=== PATIENT | male | born 1980 | race African-American/Black ===

== ENCOUNTER 2017-07-19 14:53 | Emergency (ER) | payer SELFPAY ==
[2017-07-19] MEDS ORDERED: Ketorolac Tromethamine 60 MG/2 ML VIAL ONE (16:10)
--- NOTE | 2017-07-19 17:25 | RAD ---
LEFT SHOULDER THREE VIEWS: 07/19/17 HISTORY: Shoulder surgery in 2013. Shoulder pain. AC joint is unremarkable. There appears to be some minimal arthritic changes of the glenohumeral join t. There is no signs of fracture. IMPRESSION: Minimal arthritic changes of the glenohumeral joint space. Minimal spurring along the acetabulum. POS: [facility]
--- NOTE | 2017-07-19 17:26 | RAD ---
CERVICAL SPINE THREE VIEWS: 07/19/17 HISTORY: Neck pain and left neck and shoulder pain. Vertebral bodies maintain normal height. Disc spaces are all fairly well preserved. I do not see any significant osteophytic change. I do not appear any definite interval change since 12/09/12 study. IMPRESSION: Unremarkable cervical spine. POS: [facility]
== END 2017-07-19 17:13 | disposition home or self-care (01) ==
LOC: ERS 14:53
DX: M54.2 Cervicalgia (principal); M25.512 Pain in left shoulder; F41.9 Anxiety disorder, unspecified; F17.210 Nicotine dependence, cigarettes, uncomplicated; Z79.899 Other long term (current) drug therapy
CPT/HCPCS: 72040; 96372; J1885

== ENCOUNTER 2017-12-26 09:24 | Emergency (ER) | payer SELFPAY ==
[2017-12-26] MEDS ORDERED: Dexamethasone 4 mg/ml Vial ONE (11:15)
== END 2017-12-26 11:38 | disposition home or self-care (01) ==
LOC: ERS 09:24
DX: R09.81 Nasal congestion (principal); F32.9 Major depressive disorder, single episode, unspecified; F17.210 Nicotine dependence, cigarettes, uncomplicated; Z71.6 Tobacco abuse counseling
CPT/HCPCS: 99406; J1100

== ENCOUNTER 2018-03-04 08:59 | Emergency (ER) | payer SELFPAY ==
[2018-03-04] MEDS ORDERED: Ketorolac Tromethamine 60 MG/2 ML VIAL ONE (09:38)
[2018-03-04] MEDS ORDERED: Cyclobenzaprine 10 MG TAB ONE (09:38)
== END 2018-03-04 10:05 | disposition home or self-care (01) ==
LOC: ERS 08:59
DX: M62.838 Other muscle spasm (principal); F41.9 Anxiety disorder, unspecified; F32.9 Major depressive disorder, single episode, unspecified; Z79.899 Other long term (current) drug therapy
CPT/HCPCS: 96372; J1885

== ENCOUNTER 2018-05-25 20:47 | Emergency (ER) | payer SELFPAY | END 2018-05-25 21:16 | disposition home or self-care (01) | LOC: ERS 20:47 | DX: K03.81 Cracked tooth (principal); F32.9 Major depressive disorder, single episode, unspecified; F17.210 Nicotine dependence, cigarettes, uncomplicated | CPT/HCPCS: 99282 ==

== ENCOUNTER 2018-06-11 14:17 | Emergency (ER) | payer SELFPAY | END 2018-06-11 14:46 | disposition home or self-care (01) | LOC: SCSER 14:17 | DX: K02.9 Dental caries, unspecified (principal); F17.210 Nicotine dependence, cigarettes, uncomplicated; Z71.6 Tobacco abuse counseling; F41.9 Anxiety disorder, unspecified; F32.9 Major depressive disorder, single episode, unspecified | CPT/HCPCS: 99406 ==

== ENCOUNTER 2018-07-27 21:35 | Emergency (ER) | payer SELFPAY ==
[2018-07-27] MEDS ORDERED: Ketorolac Tromethamine 30 MG/ML VIAL ONE (22:27)
[2018-07-27] MEDS ORDERED: Cyclobenzaprine 10 MG TAB ONE (22:27)
== END 2018-07-27 23:00 | disposition home or self-care (01) ==
LOC: SCSER 21:35
DX: M62.838 Other muscle spasm (principal); F17.210 Nicotine dependence, cigarettes, uncomplicated
CPT/HCPCS: 96372; J1885

== ENCOUNTER 2019-01-28 16:06 | Emergency (ER) | payer SELFPAY ==
--- NOTE | 2019-01-28 16:55 | RAD ---
EXAM: XR Hand Lt 3 View STANDARD PROVIDED CLINICAL HISTORY: Pain FINDINGS: There is no evidence for fracture or other acute osseous abnormality. Alignment appears anatomic. Johanny nt spaces appear preserved. IMPRESSION: No evidence for an acute osseous abnormality. If there is persistent clinical concern, conservative m anagement and follow-up imaging advised.
== END 2019-01-28 17:24 | disposition home or self-care (01) ==
LOC: ERS 16:06
DX: M79.642 Pain in left hand (principal); F41.9 Anxiety disorder, unspecified; F32.9 Major depressive disorder, single episode, unspecified; F17.210 Nicotine dependence, cigarettes, uncomplicated; Z79.899 Other long term (current) drug therapy

== ENCOUNTER 2019-05-29 18:55 | Emergency (ER) | payer SELFPAY ==
[2019-05-29] MEDS ORDERED: Ketorolac Tromethamine 30 MG/ML VIAL ONE (19:51)
== END 2019-05-29 20:12 | disposition home or self-care (01) ==
LOC: ERS 18:55
DX: M54.5 Low back pain (principal); F32.9 Major depressive disorder, single episode, unspecified; F41.9 Anxiety disorder, unspecified; G89.29 Other chronic pain; F17.210 Nicotine dependence, cigarettes, uncomplicated; Z79.891 Long term (current) use of opiate analgesic; Z79.899 Other long term (current) drug therapy
CPT/HCPCS: 96372; 99283; J1885

== ENCOUNTER 2019-06-26 15:05 | Emergency (ER) | payer SELFPAY ==
--- NOTE | 2019-06-26 15:43 | CT ---
CT HEAD WITHOUT IV CONTRAST COMPARISON: 10/27/2015 HISTORY: Lightheadedness and headache. TECHNIQUE: Axial CT imaging at 5 mm intervals from vertex through skull base without contrast FINDINGS: There is no evidence of an acute infarction, hemorrhage, mass effect, or midline shift. The ventricul ar system is normal in size, shape, and position. Visualized paranasal sinuses are clear. Osseous structures appear intact.No interval change when compared to prior exam. IMPRESSION: 1. No acute intracranial abnormality demonstrated.
--- NOTE | 2019-06-26 15:51 | RAD ---
RADIOGRAPH CHEST 1 VIEW: DATE: 06/26/2019. HISTORY: A 39-year-old male with headache and dizziness. FINDINGS: There are no air space densities, pulmonary edema, pneumothorax, or cardiomegaly. The lateral costop hrenic angles are sharp. IMPRESSION: No acute cardiopulmonary findings. jn [] POS: [facility]
[2019-06-26] MEDS ORDERED: Metoclopramide HCl 10 MG/2 ML VIAL ONE ×2 (15:55→16:54)
[2019-06-26] MEDS ORDERED: diphenhydrAMINE 50 MG/ML VIAL ONE ×2 (15:55→16:54)
[2019-06-26 17:21] LABS: Hemoglobin 14.3 g/dL (14.0-18.0); Mean Corpuscular HGB CONC 34.3 g/dL (32.0-36.0); Mean Corpuscular Hemoglobin 28.6 pg (27.0-31.0); Mean Corpuscular Volume 83.5 fL (78.0-98.0); Mean Platelet Volume 9.6 fL (7.4-10.4); Platelet Count 177 thou/uL (130-400); RBC Distribution Width 13.4 % (11.5-14.5); White Blood Cell (WBC) Count 6.6 thou/uL (4.8-10.8)
[2019-06-26 17:22] LABS: ALT (SGPT) 15 U/L (8-55); AST (SGOT) 31 U/L (5-34); Albumin 4.2 g/dL (3.5-5.0); Alkaline Phosphatase 77 U/L (40-110); Anion Gap 14 mmol/L (10-20); BUN (Urea Nitrogen) 11 mg/dL (8.9-20.6); Bilirubin, Total 0.6 mg/dL (0.2-1.2); Calc. Creatinine Clearance 0 mL/min (70-130); Calcium 8.8 mg/dL (7.8-10.44); Carbon Dioxide 23 mmol/L (22-29); Chloride 105 mmol/L (98-107); Estimated GFR-MDRD 87; Globulin 3.1 g/dL (2.4-3.5); Glucose 84 mg/dL (70-105); Potassium 5.4 mmol/L (3.5-5.1); Protein, Total 7.3 g/dL (6.0-8.3); Sodium 137 mmol/L (136-145)
[2019-06-26 17:43] LABS: Band 2 % (5-11); Eosinophils 4 % (0-10); Lymphocytes 26 % (21-51); MDiff Complete? YES; Monocytes 10 % (0-10); Neutrophil 28 % (42-75); Platelet Morphology Comment Appears Adequate; Polychromasia SLIGHT = 2-3 cells (100X) (0-2/hpf); Reactive Lymphocytes 30 % (0-10); Schistocytes SLIGHT = 2-5 cells (100X) (0-1/hpf); Target Cells MODERATE= 6-15 cells (100X) (0-1/hpf)
== END 2019-06-26 18:26 | disposition home or self-care (01) ==
LOC: ERS 15:05
DX: R51 Headache (principal); R42 Dizziness and giddiness; F31.9 Bipolar disorder, unspecified; F41.9 Anxiety disorder, unspecified; F20.9 Schizophrenia, unspecified; F17.210 Nicotine dependence, cigarettes, uncomplicated; Z79.899 Other long term (current) drug therapy
CPT/HCPCS: 70450; 71045; 80053; 84484; 85025; 93005; 96365; 96375; J1200; J2765

== ENCOUNTER 2021-03-25 08:51 | Emergency (ER) | payer BC, SELFPAY | END 2021-03-25 09:36 | disposition home or self-care (01) | LOC: ERS 08:51 | DX: K02.9 Dental caries, unspecified (principal); F17.210 Nicotine dependence, cigarettes, uncomplicated; Z79.899 Other long term (current) drug therapy | CPT/HCPCS: 99282 ==

== ENCOUNTER 2021-05-10 15:53 | Emergency (ER) | payer BC ==
[2021-05-11 11:55] LABS: SARS-CoV-2 PCR by NAA DETECTED (NotDetected)
== END 2021-05-10 20:46 | disposition home or self-care (01) ==
LOC: ERS 15:53
DX: U07.1 COVID-19 (principal); F17.210 Nicotine dependence, cigarettes, uncomplicated
CPT/HCPCS: 99283; U0003; U0005

== ENCOUNTER 2022-07-05 16:23 | Emergency (ER) | payer BC ==
[2022-07-05] MEDS ORDERED: Oxymetazoline HCl 0.05% (30 ML BOT) ONE (17:06)
== END 2022-07-05 17:28 | disposition home or self-care (01) ==
LOC: ERS 16:23
DX: R04.0 Epistaxis (principal); F17.210 Nicotine dependence, cigarettes, uncomplicated
CPT/HCPCS: 99282

== ENCOUNTER 2022-12-25 15:07 | Emergency (ER) | payer OTHER | END 2022-12-25 17:10 | disposition home or self-care (01) | LOC: ERS 15:07 | DX: M25.562 Pain in left knee (principal); F17.210 Nicotine dependence, cigarettes, uncomplicated ==

== ENCOUNTER 2023-09-07 20:22 | Emergency (ER) | payer OTHER ==
[2023-09-07 20:46] LABS: Bilirubin Negative (Negative); Blood, Urine Negative (Negative); Glucose, Urine (Dipstick) Negative (Negative); Ketone, Urine Negative (Negative); Leukocyte Negative (Negative); Nitrite Negative (Negative); Protein, Urine (Dipstick) Negative (Neg-Trace); Specific Gravity, Urine 1.015 (1.005-1.030); Urobilinogen 0.2 mg/dL (Less than 2)
[2023-09-07 21:12] LABS: Clarity Clear (Clear)
[2023-09-07 21:19] LABS: Bacteria/HPF None Seen HPF (None Seen); CAUTI Indications for Culture Dysuria,urgency,freq; RBC/HPF 0-3 HPF (0-3); Squamous Epithelial None Seen HPF (0-3); WBC/HPF 0-3 HPF (0-3)
[2023-09-07] MEDS ORDERED: Acetaminophen 500 MG TAB ONE (21:23)
[2023-09-07] MEDS ORDERED: Ketorolac Tromethamine 30 MG (1 mL) VIAL ONE (21:23)
[2023-09-07] MEDS ORDERED: Metoclopramide 10 MG/10 ML UDCUP ONE (21:24)
[2023-09-07 21:38] LABS: Urine Culture Reflex No No
== END 2023-09-07 22:03 | disposition home or self-care (01) ==
LOC: ERS 20:22
DX: R51.9 Headache, unspecified (principal); R11.0 Nausea; F17.210 Nicotine dependence, cigarettes, uncomplicated; Z86.16 Personal history of COVID-19
CPT/HCPCS: 81001; 96372; 99284; J1885

== ENCOUNTER 2023-10-19 19:01 | Emergency (ER) | payer OTHER, SELFPAY ==
[2023-10-19] MEDS ORDERED: Boostrix 0.5 ML (Tdap) VIAL (>/=7 yrs of age) ONE (19:17)
== END 2023-10-19 20:45 | disposition home or self-care (01) ==
LOC: ERS 19:01
DX: S91.052A Open bite, left ankle, initial encounter (principal); F17.210 Nicotine dependence, cigarettes, uncomplicated; Z23 Encounter for immunization; W54.0XXA Bitten by dog, initial encounter
CPT/HCPCS: 90471; 90715

== ENCOUNTER 2024-03-05 11:56 | Emergency (ER) | payer SELFPAY ==
[2024-03-05 12:38] LABS: Hematocrit 40.8 % (42.0-52.0); Hemoglobin 14.5 g/dL (14.0-18.0); Mean Corpuscular HGB CONC 35.5 g/dL (32.0-36.0); Mean Corpuscular Hemoglobin 27.1 pg (27.0-31.0); Mean Corpuscular Volume 76.3 fL (78.0-98.0); Mean Platelet Volume 10.2 fL (7.4-10.4); Platelet Count 172 10x3/uL (130-400); RBC Distribution Width 14.6 % (11.5-14.5); Red Blood Cell (RBC) Count 5.35 mill/uL (4.70-6.10)
[2024-03-05 13:05] LABS: Band 7 % (5-11); Eosinophils 2 % (0-10); Large Platelets 6.9 % (0-5); Lymphocytes 43 % (21-51); Monocytes 11 % (0-10); Neutrophil 31 % (42-75); Platelet Adequacy Comment Platelets Normal; Reactive Lymphocytes 7 % (0-10); Smudge Cells 13.9 %; Target Cells MODERATE= 6-15 cells HPF (0-1)
[2024-03-05 13:10] LABS: ALT (SGPT) 24 U/L (8-55); AST (SGOT) 28 U/L (5-34); Albumin 3.7 g/dL (3.5-5.0); Alkaline Phosphatase 65 U/L (40-110); Anion Gap 11 mmol/L (10-20); BUN (Urea Nitrogen) 12 mg/dL (8.9-20.6); Bilirubin, Total 0.4 mg/dL (0.2-1.2); Calc. Creatinine Clearance 0 mL/min (70-130); Calcium 8.8 mg/dL (7.8-10.44); Carbon Dioxide 27 mmol/L (22-29); Chloride 105 mmol/L (98-107); Estimated GFR 93; Glucose 99 mg/dL (70-105); Potassium 4.2 mmol/L (3.5-5.1); Protein, Total 6.7 g/dL (6.0-8.3); Sodium 139 mmol/L (136-145)
[2024-03-05 13:39] LABS: Bacteria/HPF None Seen HPF (None Seen); Bilirubin Negative (Negative); Blood, Urine Negative (Negative); CAUTI Indications for Culture Dysuria,urgency,freq; Clarity Clear (Clear); Glucose, Urine (Dipstick) Normal (Negative); Ketone, Urine Negative (Negative); Leukocyte Negative Leu/uL (Negative); Nitrite Negative (Negative); Protein, Urine (Dipstick) 10 mg/dL (Neg-Trace); RBC/HPF 0-3 HPF (0-3); Specific Gravity, Urine 1.018 (1.002-1.036); Squamous Epithelial None Seen HPF (0-3); WBC/HPF 0-3 HPF (0-3)
[2024-03-05 13:44] LABS: Urine Culture Reflex No No
[2024-03-05] MEDS ORDERED: Ketorolac Tromethamine 30 MG (1 mL) VIAL ONE (14:18)
== END 2024-03-05 15:50 | disposition home or self-care (01) ==
LOC: ERS 11:56
DX: E86.0 Dehydration (principal); F17.210 Nicotine dependence, cigarettes, uncomplicated; F17.290 Nicotine dependence, other tobacco product, uncomplicated
CPT/HCPCS: 36415; 80053; 81001; 83605; 83690; 85025; 93005; 96374; J1885

== ENCOUNTER 2024-04-15 08:58 | Emergency (ER) | payer SELFPAY ==
[2024-04-15] MEDS ORDERED: Dexamethasone 10 MG/ML VIAL ONE (10:40)
[2024-04-15] MEDS ORDERED: Acetaminophen 500 MG TAB ONE (10:40)
[2024-04-15 11:19] LABS: Bacteria/HPF None Seen HPF (None Seen); Bilirubin Negative (Negative); Blood, Urine Negative (Negative); CAUTI Indications for Culture Pelvic or flank pain; Clarity Clear (Clear); Glucose, Urine (Dipstick) Normal (Negative); Ketone, Urine Negative (Negative); Leukocyte Negative Leu/uL (Negative); Nitrite Negative (Negative); Protein, Urine (Dipstick) Negative (Neg-Trace); RBC/HPF 0-3 HPF (0-3); Specific Gravity, Urine 1.015 (1.002-1.036); Squamous Epithelial None Seen HPF (0-3); WBC/HPF 0-3 HPF (0-3); pH, Urine 7.5 (5.0-9.0)
[2024-04-15 11:25] LABS: Urine Culture Reflex No No
== END 2024-04-15 12:19 | disposition home or self-care (01) ==
LOC: ERS 08:58
DX: M62.830 Muscle spasm of back (principal); F17.290 Nicotine dependence, other tobacco product, uncomplicated
CPT/HCPCS: 81001; 99283; J1100